=== PATIENT | female | born 1995 | race Caucasian/White ===

== ENCOUNTER 2017-08-24 21:33 | Emergency (ER) | payer MEDICAID ==
[~2017-08-24] VITALS: Ht 157.5 cm; Wt 78.1 kg
[~2017-08-24 21:33] MED LIST: IBUP-1542 PO; denies meds & allergies
[2017-08-24 21:36] VITALS: Ht 157.5 cm; Wt 78.1 kg
[2017-08-24] MEDS ORDERED: IBUP-1542 PO (22:36)
[2017-08-24] MEDS ORDERED: CYCL-319 PO (22:36)
--- NOTE | 2017-08-25 00:50 | ERD ---
ER Documentation Chief Complaint Chief Complaint stiff neck & MORAN x 2 days, no injury HPI Is a 22-year-old female presenting to the emergency department complaining of occipital neck pain that radiates upward for the past 2 days. Pain is increased with movement. She denies any trauma, fevers. No medications have been given ROS All systems reviewed and are negative except as per history of present illness. Medications Home Meds Active Scripts Cyclobenzaprine Hcl* (Cyclobenzaprine Hcl*) 10 Mg Tablet, 10 MG PO TID, #30 TAB Prov:LIVAN COVARRUBIAS PA-C 08/24/17 Ibuprofen* (Motrin*) 600 Mg Tab, 600 MG PO Q6H Y for PAIN AND OR ELEVATED TEMP, #30 TAB Prov:LIVAN COVARRUBIAS PA-C 08/24/17 Ibuprofen* (Motrin*) 600 Mg Tab, 600 MG PO Q6H Y for PAIN AND OR ELEVATED TEMP, #30 TAB Prov:LIVAN COVARRUBIAS PA-C 02/24/16 Reported Medications [denies meds & allergies] No Conflict Check 08/29/13 Allergies Allergies: Coded Allergies: No Known Drug Allergy (Unverified Allergy, Unknown, 08/29/13) PMhx/Soc History of Surgery: No Anesthesia Reaction: No Hx Neurological Disorder: No Hx Respiratory Disorders: No Hx Cardiac Disorders: No Hx Psychiatric Problems: No Hx Miscellaneous Medical Probl: No Hx Alcohol Use: Yes (occasionaly ) Hx Substance Use: No Hx Tobacco Use: No Smoking Status: Never smoker Physical Exam Vitals Vital Signs Date Time Temp Pulse Resp B/P Pulse Ox O2 Delivery O2 Flow Rate FiO2 08/24/17 21:36 97.2 98 18 120/66 98 Physical Exam Const: [] Head: Atraumatic Eyes: Normal Conjunctiva ENT: Normal External Ears, Nose and Mouth. Neck: Tender palpation in the occipital region bilaterally, full range of motion, no meningeal gel signs Resp: Clear to auscultation bilaterally Cardio: Regular rate and rhythm, no murmurs Abd: Soft, non tender, non distended. Normal bowel sounds Skin: No petechiae or rashes Back: No midline or flank tenderness Ext: No cyanosis, or edema Neur: Awake and alert Psych: Normal Mood and Affect Procedures/MDM Is a 22-year-old female presenting to the emergency department with neck pain likely due to strain and spasm. There was no evidence of vertebral fracture, subluxation or meningitis. Patient was given ibuprofen and Flexeril I have discussed with patient that she will need to follow with her primary care physician to get a referral to see physical therapy since this neck pain happens often. Patient presented with a forward flexion neck posture. Discussed return to the ER for any worsening signs or symptoms patient understands and agrees with Departure Diagnosis: Primary Impression: Neck pain Condition: Stable Patient Instructions: Neck Pain, No Trauma, Neck Sprain/Strain, Neck Spasm, No Trauma Referrals: NO PRIMARY,CARE PHYSICIAN (PCP) Additional Instructions: [place] toda la medicina kota y yuriy se le indic. Regrese a estas instalaciones si no se mejora yuriy esperbamos o yuriy le dijimos. Visite a [facility] maana para un EXAMEN.Regrese a estas instalaciones si no se mejora yuriy esperbamos o yuriy le dijimos. La medicina que se le recet puede causarle sueo.NO DEBE MANEJAR NI OPERAR MAQUINARIAS PELIGROSAS mientras esta tomando esta medicina! LIVAN COVARRUBIAS PA-C Aug 25, 2017 00:50
== END 2017-08-24 22:46 | disposition home or self-care (01) ==
LOC: FTE 21:33
DX: M54.2 Cervicalgia (principal)
CPT/HCPCS: 99283